=== PATIENT | female | born 1970 | race Caucasian/White ===

== ENCOUNTER 2020-03-05 14:39 | Emergency (ER) | payer OTHER, SELFPAY ==
--- NOTE | ~2020-03-05 | CT_ITS ---
EXAMINATION: CT abd pelvis lumbar w con DATE: 03/05/2020 16:13 INDICATION: Abdominal pain. History of colitis. TECHNIQUE: Computed tomography (CT) of the abdomen and pelvis and lumbar spine was performed with 100 cc Omnipaque 350 intravenous contrast. Automated exposure control and iterative reconstruction techn ique were employed. Exam dose: 216.84 mGy-cm total exam DLP. COMPARISON: 11/16/2018 CT abdomen pelvis noncontrast examination FINDINGS: There are bilateral foramen of Bochdalek hernias containing fat and portions of the kidneys . No pulmonary consolidation at the lung bases. Normal heart size. No pericardial or pleural effusion. Status post cholecystectomy. No hepatic, splenic, pancreatic, and adrenal or renal space-occupying ma ss lesion is detected. Multiple bilateral nonobstructing small renal calculi, measuring 4 mm or small er. No ureteral calculus or hydroureteronephrosis. No renal mass lesion is detected. The urinary bladder, uterus and adnexal areas are unremarkable. Normal caliber of the abdominal aorta. No intraperitoneal or retroperitoneal or pelvic mass lesion o r lymphadenopathy or ascites. There are numerous diverticula of the colon; no CT evidence of diverticulitis. No bowel obstruction, bowel wall thickening, pneumatosis or intraperitoneal free air is detected. Small fat-containing umbilical hernia. Included skeletal structures are unremarkable. IMPRESSION: Bilateral foramen of Bochdalek hernias, partially including kidneys Status post cholecystectomy Bilateral nonobstructive nephrolithiasis Reviewed, dictated and finalized at [facility]. Reviewed, dictated and finalized at location [facility]. 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
--- NOTE | ~2020-03-05 | CT_ITS ---
EXAMINATION: CTA chest PE protocol EXAM DATE: 03/05/2020 16:47 INDICATION: Left-sided chest pain. Elevated d-dimer. TECHNIQUE: Spiral CTA of the chest (pulmonary arteries) was performed with 100 cc Omnipaque 350 intr avenous contrast injection. Images were acquired during the pulmonary arterial phase. Coronal maxi mum intensity projection 3D-reconstructions were created by the technologist on dedicated workstation . Axial, coronal and sagittal reformatted images were reviewed. The dose-length product (DLP) for t his examination was 167.20 mGy-cm. The exposure was tailored according to patient size (auto mA exp osure control), and iterative reconstruction (ASIR) was used as additional dose reduction technique. Correlation is made to chest x-ray same date. FINDINGS: Pulmonary arteries are well opacified and without intraluminal filling defects. No thora cic aortic dissection. The lungs are clear. There are no pleural or pericardial effusions. Trach eobronchial tree is patent. There is no mediastinal, hilar or axillary lymphadenopathy. There is no pneumothorax. Heart normal in size. No evidence of coronary arterial calcification. Cholecyst ectomy clips. The bones are unremarkable. Breast implants. IMPRESSION: 1. Unremarkable CT pulmonary exam. Reviewed, dictated and finalized at location [facility]. 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
[2020-03-05 14:43] VITALS: BP 130/81; PULSE 91; RESP 20; TEMP 36.8; O2SAT 99
--- NOTE | 2020-03-05 14:53 | ED.ABDPAIN ---
HPI - Abdominal Pain General Chief Complaint: Abdominal Pain Stated Complaint: blood in stool, side pain, buttock pain Time Seen by Provider: 03/05/20 14:53 Source: patient Mode of arrival: ambulatory Limitations: no limitations History of Present Illness HPI narrative: Patient is a 49-year-old female with a history of colitis who presents for evaluation of abdominal pain, flank pain, pleuritic chest pain. Patient states that she has had red stools intermittently over the past 2 days, with cramping left-sided abdominal pain. She does notice that the pain worsens with movement. She denies any recent heavy bending or lifting. She also reports pain in her left buttock that radiates on the back of her left leg. No associated fever, chills, nausea or vomiting. Eating does not aggravate her symptoms. 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 Patient denies any shortness of breath, does report some chest pain when she takes a deep breath. This has been also present over the past 2 to 4 days. She denies any palpitations or central chest pain. No jaw pain or diaphoresis. Patient denies any history of cardiac problems. Related Data Allergies Allergy/AdvReac Type Severity Reaction Status Date / Time No Known Allergies Allergy Unknown Verified 12/25/18 16:35 Review of Systems Review of Systems: Narrative: CONSTITUTIONAL: Denies fever, chills, or sweats. EYES: Denies visual changes, redness, or discharge. ENT: Denies rhinorrhea, congestion, sore throat, or otalgia. CARDIOVASCULAR: Reports left-sided chest pain with deep inspiration, denies palpitations or edema RESPIRATORY: Denies cough or dyspnea. GASTROINTESTINAL: Reports left-sided abdominal pain without nausea, vomiting, patient does report numerous loose stools GENITOURINARY: Denies dysuria or hematuria. SKIN: Denies rash or itching. MUSCULOSKELETAL: Reports lower back pain with radiation down to her buttocks NEUROLOGIC: Denies headache, numbness, or weakness. [facility] Past Medical History Medical History (Updated 03/05/20 @ 17:41 by Janay Fernandes MD) ADD (attention deficit disorder) Anxiety and depression Irritable bowel syndrome Migraine syndrome Tremor of unknown origin Family History Family History (Updated 06/23/16 @ 23:56 by DOCTOR UNKNOWN) Mother Family history of malignant neoplasm of breast in first degree relative, Onset Age: 65 Patient's mother is Family history of pancreatic cancer Other Cerebrovascular accident Diabetes mellitus Social History Social History Alcohol intake: current Exam Narrative: Exam Narrative: GENERAL: Awake, alert, conversant HEAD: Normocephalic, atraumatic. EYES: PERRLA and EOMI. ENT: Nares clear, no rhinorrhea or epistaxis. Mucous membranes moist. NECK: Supple. CHEST: No respiratory distress, breathing even and non labored HEART: Regular rate, sinus rhythm ABDOMEN:Non distended, mildly tender in the left lower quadrant left middle abdomen without rebound or guarding. Mild left flank tenderness which reproduces the pain. No lesions or vesicles present. : Positive left SI joint tenderness, no midline lumbar tenderness EXTREMITIES: Normal range of motion. No edema. SKIN: Warm, dry, no rash. NEURO:No focal deficits. Alert and oriented x3 Course Vital Signs Vital signs: Vital Signs Temperature 36.8 C 03/05/20 14:43 Pulse Rate 91 03/05/20 14:43 Respiratory Rate 20 03/05/20 14:43 Blood Pressure 130/81 03/05/20 14:43 Pulse Oximetry 99 03/05/20 14:43 Temperature 36.8 C 03/05/20 14:43 Pulse Rate 91 03/05/20 14:43 Respiratory Rate 20 03/05/20 14:43 Blood Pressure 130/81 03/05/20 14:43 Pulse Oximetry 99 03/05/20 14:43 MDM - Abdominal Pain MDM Narrative Medical decision making narrative: Patient presented for evaluation of mild lef
[2020-03-05 15:37] LABS: Basophils Absolute Auto 0.1 K/mm3 (0.0-0.1); Basophils Percent Auto 0.8 % (0.2-1.2); Eosinophils Absolute Auto 0.4 K/mm3 (0-0.3); Eosinophils Percent Auto 4.9 % (0-4.4); Hematocrit 40.3 % (37.0-47.0); Hemoglobin 13.3 g/dL (12.0-15.0); Immature Granulocyte Absolute 0.02 K/mm3 (0.00-0.031); Immature Granulocyte Percent A 0.3 % (0-0.5); Lymphocytes Absolute Auto 3.11 K/mm3 (0.9-3.2); Lymphocytes Percent Auto 40.9 % (18.3-44.2); Mean Corpuscular Hemoglobin 31.7 pg (26-34); Mean Corpuscular Volume 96.2 fl (80-100); Mean Platelet Volume 9.8 fl (7.4-10.4); Monocytes Absolute Auto 0.5 K/mm3 (0.1-0.6); Monocytes Percent Auto 7.1 % (2.6-8.5); Neutrophils Absolute Auto 3.5 K/mm3 (1.3-6.7); Platelet Count Result 283 k/mm3 (150-375); Red Blood Count 4.19 M/mm3 (4.2-5.4); Red Cell Distribution Width 12.2 % (11.5-14.5); White Blood Count 7.6 K/mm3 (4.5-10.0)
[2020-03-05 15:41] LABS: Add Urine Microscopic? YES; Appearance Urine Clear (Clear); Bilirubin Urine Negative (Negative); Blood Urine 1+ (Negative); Color Urine Yellow (Yellow); Glucose Urine UA Negative (Negative); Ketones Urine Negative (Negative); Leukocyte Esterase Ur Negative LEU/UL (Negative); Mucus Urine Rare /lpf; Nitrate Urine Negative (Negative); Protein Urine Negative (Negative); Specific Grav Ur 1.016 (1.001-1.035); Squamous Epithelial Cell Urine Rare /hpf (Few); Urobilinogen Urine Negative mg/dL (<2.0); WBC Urine 0-3 /hpf
[2020-03-05 15:46] LABS: INR 0.8; Prothrombin Time 12.1 Seconds (11.1-14.7)
[2020-03-05 15:47] LABS: Partial Thromboplastin Time 29.9 SECONDS (22.3-36.8)
[2020-03-05 15:48] LABS: Alanine Aminotransferase 14 U/L (4-35); Albumin Level 4.1 g/dL (3.5-5.1); Alkaline Phosphatase 59 U/L (38-126); Anion Gap 6 mmol/L (8-16); Aspartate Amino Transferase 23 U/L (14-36); Bilirubin,Total 0.4 mg/dL (0.2-1.3); Blood Urea Nitrogen 16 mg/dL (7-17); Calcium 9.6 mg/dL (8.4-10.2); Carbon Dioxide 32 mmol/L (22-30); Chloride 101 mmol/L (98-107); Estimated CRCL calculation 62 ml/min; Estimated Glomerular Filt Rate > 60; Glucose 95 mg/dL (65-105); Lipase 55 U/L (23-300); Potassium 3.5 mmol/L (3.4-5.0); Sodium 139 mmol/L (137-145)
[2020-03-05 16:00] LABS: Troponin I < 0.012 ng/mL (0.000-0.034)
[2020-03-05 16:06] LABS: D Dimer 0.53 ug/mL (<0.48)
[2020-03-05] MEDS: SODIUM CHLORIDE 0.9% IV 1,000 ML 999 ML IV CONT (16:12)
--- NOTE | 2020-03-05 16:29 | PC.NURSE ---
patient back from CT. IVF continue. waiting for CT results.
--- NOTE | 2020-03-05 17:20 | PC.NURSE ---
resting on stretcher. magnesium continues. IVF almost done. provider has reviewed current treatment plan and discharge plan with patient.
[2020-03-05 18:07] VITALS: BP 128/66; PULSE 78; RESP 18; TEMP 36.6; O2SAT 100
== END 2020-03-05 18:08 | disposition home or self-care (01) ==
PROVIDERS: Emergency Provider Emergency Medicine; PCP Internal Medicine
DX: K58.9 Irritable bowel syndrome, unspecified (principal); K62.5 Hemorrhage of anus and rectum; N20.0 Calculus of kidney; K44.9 Diaphragmatic hernia without obstruction or gangrene; F98.8 Other specified behavioral and emotional disorders with onset usually occurring in childhood and adolescence; F41.9 Anxiety disorder, unspecified; F32.9 Major depressive disorder, single episode, unspecified
CPT/HCPCS: 36415; 71275; 72132; 74177; 80053; 81001; 83690; 84484; 85025; 85380; 85610; 85730; 99284; J7030; Q9967

== ENCOUNTER 2021-08-02 06:30 | Emergency (ER) | payer OTHER, SELFPAY ==
[2021-08-02 06:31] VITALS: BP 122/78; PULSE 63; RESP 18; TEMP 36.1; O2SAT 99
--- NOTE | 2021-08-02 06:46 | ECG_ITS ---
Measurements Intervals [place] Rate: 69 P: 46 AR: 150 QRS: 63 QRSD: 87 T: 65 QT: 425 QTc: 455 Interpretive Statements SINUS RHYTHM BASELINE ARTIFACT- AVR, AVF NORMAL ECG Electronically Signed On 08-02-2021 7:55:28 CDT by Nguyễn Salter D.O.
[2021-08-02 07:16] VITALS: BP 116/69; PULSE 68; RESP 14; O2SAT 100
[2021-08-02] MEDS: ONDANSETRON INJ 4 MG/2 ML VIAL IV PUSH (07:44)
[2021-08-02] MEDS: SODIUM CHLORIDE 0.9% IV 1,000 ML 999 ML IV CONT (07:44)
[2021-08-02] MEDS: MECLIZINE HCL 25 MG TABLET PO (07:50)
--- NOTE | 2021-08-02 08:17 | ED.DIZZY ---
HPI - Dizziness General Chief Complaint: Dizziness Stated Complaint: dizziness, n/v Time Seen by Provider: 08/02/21 06:57 History of Present Illness HPI Narrative: Patient is a 50-year-old female who presents ER with dizziness. Began 2 days ago. Had a break yesterday but much more severe this morning. The room is spinning. She is nauseated and vomiting. No weakness of an arm or leg. No focal numbness or tingling. She has had some sinus congestion over the last couple weeks due to seasonal allergies. No fevers or chills or sweats. No history of motion sickness. Related Data Allergies Allergy/AdvReac Type Severity Reaction Status Date / Time No Known Allergies Allergy Unknown Verified 08/02/21 06:43 Review of Systems Review of Systems: All systems reviewed & are unremarkable except as noted in HPI and below Constitutional: Constitutional: Denies chills, Denies fever(s) and Denies weakness ENT: Reports nasal congestion and Denies sore throat Comments: Denies tinnitus or change in hearing Gastrointestinal: Gastrointestinal: Reports nausea and Reports vomiting Neurologic: Reports dizziness, Denies headache(s), Denies focal weakness and Denies numbness PMFSH Past Medical History Medical History (Updated 08/02/21 @ 08:59 by Blade Denton MD) ADD (attention deficit disorder) Anxiety and depression Irritable bowel syndrome Migraine syndrome Tremor of unknown origin Surgical History Surgical History (Updated 08/02/21 @ 08:19 by Blade Denton MD) History of cholecystectomy Family History Family History (Updated 06/23/16 @ 23:56 by DOCTOR UNKNOWN) Mother Family history of malignant neoplasm of breast in first degree relative, Onset Age: 65 Patient's mother is Family history of pancreatic cancer Other Cerebrovascular accident Diabetes mellitus Social History Social History (Updated 01/12/21 @ 07:58 by Emma Burton MA) Smoking packs per day: 0.15 Smoking cigarettes per day: 3.0 Years smoked: 3 Smoking pack-years: 0.45 Smoking status: Former smoker Tobacco type: cigarettes Smoking end date: 01/04/90 Alcohol intake: current Alcohol use details: social Substance use: never Exam Narrative: GENERAL: Well-appearing, well-nourished, and in no acute distress. HEAD: Normocephalic, atraumatic. EYES: PERRL and EOMI. left gaze nystagmus. ENT: Mucous membranes moist. Ear canals free of cerumen. TMs normal bilaterally. NECK: Supple. CHEST: Clear to auscultation. No respiratory distress. HEART: Regular rate and rhythm. Normal peripheral pulses. EXTREMITIES: Normal range of motion. No edema. NEURO: Alert and oriented x3. PSYCH: Normal mood and affect. Course Course Emergency Course: Symptoms improved with meclizine/Zofran/fluids. Discharge home with supportive care. Vital Signs Vital signs: Vital Signs Temperature 97 F L 08/02/21 06:31 Pulse Rate 63 08/02/21 06:31 Respiratory Rate 18 08/02/21 06:31 Blood Pressure 122/78 08/02/21 06:31 Pulse Oximetry 99 08/02/21 06:31 Temperature 97 F L 08/02/21 06:31 Pulse Rate 68 08/02/21 07:16 Respiratory Rate 14 08/02/21 07:16 Blood Pressure 116/69 08/02/21 07:16 Pulse Oximetry 100 08/02/21 07:16 Discharge Plan Discharge Clinical Impression: Vertigo Patient Disposition: Home, Self-Care Condition: Stable Instructions: Vertigo (ED) Additional Instructions: Return the ER if you cannot keep down food or water, you have chest pain or shortness of breath, you develop fever over 100.4 ?F, you have focal weakness in arm or leg. Prescriptions: New meclizine 12.5 mg tablet 12.5 mg PO TID PRN (Reason: dizziness) Qty: 14 RF: 0 ondansetron 4 mg tablet,disintegrating 4 mg PO Q6H PRN (Reason: nausea and vomiting) Qty: 10 RF: 0 No Action fluticasone propionate [Flonase Allergy Relief] 50 mcg/actuation spray,suspension 2 spray intranasal BID Qt
[2021-08-02 09:10] VITALS: BP 112/61; PULSE 88; RESP 16; O2SAT 99
== END 2021-08-02 09:10 | disposition home or self-care (01) ==
PROVIDERS: Emergency Provider Emergency Medicine; PCP Internal Medicine
DX: R42 Dizziness and giddiness (principal); Z87.891 Personal history of nicotine dependence
CPT/HCPCS: 93005; 96361; 96374; 99284; A9270; J2405; J7030

== ENCOUNTER 2021-08-15 14:51 | Emergency (ER) | payer OTHER, SELFPAY ==
--- NOTE | 2021-08-15 15:04 | ED.WOUNDLAC ---
HPI - Wound/Laceration General Chief Complaint: Wound/Laceration Stated Complaint: FINGER LACERATION Time Seen by Provider: 08/15/21 15:04 Source: patient and RN notes reviewed History of Present Illness HPI narrative: Patient is a 50-year-old female who presents the urgent care with complaints of a laceration to the left middle finger. Patient states that she was using shearing scissors to cut a strap off her clothing and snap at the tip of her left middle finger. Patient states that she immediately applied pressure, clean the wound and put gorilla glue over the wound. Patient states she is have it covered with gauze since then. Denies of any increase in pain, fever, redness or swelling. No other acute complaints. No acute distress noted. Patient aware of the plan of care. Some parts of this dictation were generated by voice recognition software and may contain typographical and/or grammatical inaccuracies. Related Data Allergies Allergy/AdvReac Type Severity Reaction Status Date / Time No Known Allergies Allergy Unknown Verified 08/15/21 15:13 Review of Systems Review of Systems: CONSTITUTIONAL: Denies fever, chills, or sweats. EYES: Denies visual changes, redness, or discharge. ENT: Denies rhinorrhea, congestion, sore throat, or otalgia. CARDIOVASCULAR: Denies chest pain, palpitations, or edema. RESPIRATORY: Denies cough or dyspnea. GASTROINTESTINAL: Denies abdominal pain, nausea, vomiting, or diarrhea. GENITOURINARY: Denies dysuria or hematuria. SKIN: Reports of a laceration to the left middle finger MUSCULOSKELETAL: Denies back pain, joint pain, or myalgia. NEUROLOGIC: Denies headache, numbness, or weakness. All other systems reviewed are negative, except as documented in HPI. [facility] Past Medical History Medical History (Updated 08/15/21 @ 15:39 by USMAN Bacon) ADD (attention deficit disorder) Anxiety and depression Irritable bowel syndrome Migraine syndrome Tremor of unknown origin Surgical History Surgical History (Updated 08/02/21 @ 08:19 by Blade Denton MD) History of cholecystectomy Family History Family History (Updated 06/23/16 @ 23:56 by DOCTOR UNKNOWN) Mother Family history of malignant neoplasm of breast in first degree relative, Onset Age: 65 Patient's mother is Family history of pancreatic cancer Other Cerebrovascular accident Diabetes mellitus Social History Social History (Updated 01/12/21 @ 07:58 by Emma Burton MA) Smoking packs per day: 0.15 Smoking cigarettes per day: 3.0 Years smoked: 3 Smoking pack-years: 0.45 Smoking status: Former smoker Tobacco type: cigarettes Smoking end date: 01/04/90 Alcohol intake: current Alcohol use details: social Substance use: never Comments At the time of my signature, I reviewed and agree with the nursing past medical, surgical, social, and family history. There is no relevant family history pertinent to the patient complaint. Exam Narrative: GENERAL: This is a well-nourished, well-developed patient, in no apparent distress. HEAD: normocephalic, atraumatic. EYES: PERRL. Sclera clear/white. Vision is grossly intact. EARS: External ears normal NOSE: External nose normal with no obvious nasal discharge, nares without redness, no rhinorrhea. THROAT: Mucous membranes moist NECK: Neck supple SKIN: Irregular skin avulsion to the distal tip of the left middle finger NEURO: awake, alert, and oriented to person, place and time. There were no obvious focal neurologic abnormalities. EXTREMITIES: No clubbing, cyanosis, or edema. Capillary refill less than 2 seconds to left upper extremity with positive strong left radial pulse. Range of motion to left upper extremity within normal limits. Course Course Level of Care: Express Care Visit Vital Signs Vital signs: Vital Signs Temperature 97.1 F L 08/15/21 15:15 Pulse Rate 77 08/15/21 15:15 Respiratory Rate 16 08/15/21 15:15
[2021-08-15 15:15] VITALS: BP 119/65; PULSE 77; RESP 16; TEMP 36.2; O2SAT 100
== END 2021-08-15 15:53 | disposition home or self-care (01) ==
PROVIDERS: Emergency Provider Nurse Practitioner Family; PCP Internal Medicine
DX: S61.203A Unspecified open wound of left middle finger without damage to nail, initial encounter (principal); W27.2XXA Contact with scissors, initial encounter; Z87.891 Personal history of nicotine dependence
CPT/HCPCS: 99213; G0463

== ENCOUNTER → 2023-01-09 15:42 | Outpatient (CLI) | payer OTHER, SELFPAY ==
--- NOTE | ~2023-01-09 | US_ITS ---
EXAMINATION: US pelvic complete DATE: 01/09/2023 16:01 INDICATION: Abnormal uterine bleeding Comparison:No prior studies for comparison. TECHNIQUE: Multiple transabdominal and endovaginal sonographic images of the pelvis performed. FINDINGS: The uterus measures 7.1 x 4.2 x 4.4 cm. There is a mass at the fundus of uterus measuring 1 .6 cm, compatible with a fibroid. The endometrial complex measures 3 mm. The right ovary measures 2 x 2 x 1.4 cm and the left ovary measures 2.1 x 2.6 x 1.8 cm. There are sm all follicles in each ovary. Normal doppler signal in both ovaries. There is no free fluid in the pelvis. There are no abnormal masses seen on either side. IMPRESSION: 1. Uterine fundus measuring 1.6 cm. Reviewed, dictated and finalized at location [facility].
== END ==
PROVIDERS: PCP Advanced Practice Midwife; Visit Provider Advanced Practice Midwife
DX: N93.8 Other specified abnormal uterine and vaginal bleeding (principal)
CPT/HCPCS: 76856

== ENCOUNTER 2023-02-26 02:16 | Day surgery (SDC) | payer OTHER, SELFPAY ==
--- NOTE | 2023-02-23 14:33 | PC.NURSE ---
Report to the Outpatient Waiting Room, entrance under the green pavilion located off [facility], at time 12:45pm on date 02-26-23. Planned Procedure Time: 2:45pm. Time changes happen often and if your time is changed the preop area will call you the afternoon before. - You and your visitor will be asked to self-screen and do not enter if you have any COVID symptoms. - A mask is optional within the hospital at this time. Patients may have clear liquids (water, carbonated beverages, clear teas, apple juice) until 3 hours prior to surgery (11:45am) with a maximum of 20 ounces. - No food from midnight until time of surgery Take the following medications with a SIP of water the morning of surgery: inhaler as needed, vyvanse DO NOT STOP ANY OF YOUR OTHER PRESCRIPTION MEDICATIONS PRIOR TO SURGERY ?EXCEPT THE FOLLOWING Medications to discontinue per physician: n/a Please no make-up, nail namibian, hairspray, perfume, deodorant, or body powder the day of surgery. No jewelry (including any body piercings) or valuables the day of surgery, leave them at home. Please take a shower or bath the night before, or the morning of, surgery with an antibacterial soap. Wear comfortable, loose fitting clothing. - Jewelry must be removed prior to entering the operating room. Rings and piercings that are not removed may be cut off. - The hospital will not accept responsibility for valuables. - Please leave all valuables, including medications, at home the day of surgery. If you are going home after surgery, a licensed straight truck driver must drive you home. - NO public transportation without another adult if you receive anesthesia. - We recommend that an adult stay with you for 24 hours following discharge. - We also recommend that you do not drive, make important decision, drink alcoholic beverages, or take any drugs that were not prescribed by your health care provider for at least 24 hours after your discharge time. Follow any additional instructions given to you from your surgeon. If you or anyone in your household have experienced Covid symptoms in the past week, please notify your surgeon or the nurse liaison at the phone number below for possible testing. Telephone instructions given to PATIENT and asked if any additional questions and then verbalized understanding. Patient advised to call surgeon office or pre surgery nurse liaison [phone] if any additional questions.
[2023-02-23 14:41] VITALS: BMI 20.1
--- NOTE | 2023-02-26 08:30 | WPDHPUPDATE1 ---
History and Physical Update Update Date/Time: 02/26/23 08:30 History and Physical has been reviewed, including an updated exam of the patient. There are NO changes in the patient's condition. Risks, benefits, and alternatives have been discussed and questions answered. Patient agrees to proceed with procedure.
--- NOTE | 2023-02-26 08:30 | PM.HPGS ---
History of Present Illness History of Present Illness Consent: Risks, benefits, and alternatives have been discussed and questions answered. Patient agrees to proceed with procedure. Chief complaint: Abnormal Uterine Bleed,Fibroids No Endo Cerv Cells Narrative: Katina Aguirre is a 52 year old female with heavy and irregular bleeding. Pelvic ultrasound shows a fibroid. Patient has been skipping cycles for up to 6 months at a time. Cycles have returned and have been regular but much heavier. Cycles are also closed with an 21 days at times. It was recommended to undergo D&C hysteroscopy for further evaluation. Risks of infection, bleeding, perforation, and possible pathology are discussed. Patient voiced understanding and agrees to proceed. Review of Systems Review of Systems: not repeated day of surgery; patient states no changes in status [facility] Past Medical History Medical History (Updated 02/26/23 @ 08:34 by Chanell Werner MD) ADD (attention deficit disorder) Anxiety and depression Irritable bowel syndrome Migraine syndrome Tremor of unknown origin Surgical History Surgical History (Updated 02/26/23 @ 08:33 by Chanell Werner MD) History of bilateral breast implants History of breast biopsy History of cholecystectomy History of cone biopsy of cervix 2017 Family History Family History Mother Family history of malignant neoplasm of breast in first degree relative, Onset Age: 65 Patient's mother is Family history of pancreatic cancer Other Cerebrovascular accident Diabetes mellitus Social History Social History Smoking packs per day: 0.15 Smoking cigarettes per day: 3.0 Years smoked: 3 Smoking pack-years: 0.45 Smoking status: Former smoker Tobacco type: cigarettes Second hand tobacco smoke exposure: No Smoking end date: 01/04/90 Additional smoking assessment comments: socially, college Alcohol intake: former Alcohol use details: occasionally Substance use: current Substance use type: marijuana Lack of Transportation: No Lack of Food: Never True Current Housing: I Have Housing Concerned About Future Housing: No Difficulty Paying Gas/Electric Bills: No Difficulty Paying for Meds: No Currently Unemployed: No Education: Master's Degree or Higher Difficulty w/ Childcare or Family Care: No Living arrangements: with family Occupation/Education: occupation Gender identity (if verbalized by the patient): Female Spiritual care concerns: No Meds Home Medications and Allergies Home Medications Medication Instructions Recorded Confirmed Type montelukast 10 mg tablet 10 mg PO DAILY #30 tabs 07/24/22 02/23/23 Rx (Singulair) rizatriptan 10 mg disintegrating See Rx Instructions PO .COMPLEX 10/17/22 02/23/23 History tablet PRN HEADACHES lisdexamfetamine 50 mg capsule 50 mg PO DAILY #30 caps 01/24/23 02/23/23 Rx (Vyvanse) albuterol sulfate 90 mcg/actuation 2 inh inhalation Q4H PRN shortness 01/29/23 02/23/23 Rx aerosol inhaler of breath or wheezing #8.5 grams Allergies Allergy/AdvReac Type Severity Reaction Status Date / Time No Known Allergies Allergy Unknown Verified 02/23/23 14:41 Exam Const: General: healthy appearing and alert Orientation/consciousness: patient oriented x3 Resp: Effort & Inspection: normal respiratory effort GI: GI Palp: Yes Soft to palpation, No Tenderness to palpation present (GI) and No Palpable mass present : External Female Exam: normal external appearance Speculum Exam - Vagina: normal appearance of the vagina and normal vaginal discharge Speculum Exam - Cervix: normal appearance of the cervix Bimanual exam- vagina & uterus: uterine size normal and consistency normal Bimanual Exam- Adnexa, other: normal adnexae and No adnexal tenderness Neuro: General: franci
[2023-02-26 12:48] VITALS: BP 102/64; PULSE 76; RESP 16; TEMP 36.6; O2SAT 100
[2023-02-26] MEDS: ACETAMINOPHEN 500 MG TABLET 1000 MG PO (12:57)
[2023-02-26] MEDS: LACTATED RINGERS 1,000 ML 30 ML IV CONT (13:20)
--- NOTE | 2023-02-26 13:50 | WPDANESEPPF ---
Anes - Initial Pre Proc Eval Procedure: Operation Date: 02/26/23 14:45 Proposed Procedures p Hysteroscopy Dilation and Curettage with Endocervical Curettage - Chanell Werner MD Date/Time: 02/26/23 13:50 Surgeon: Chanell Werner MD Pre Op Diagnosis: Abnormal Uterine Bleed,Fibroids No Endo Cerv Cells Patient Data Age: 52 Gender: F Height: 1.57 m Weight: 50.2 kg Last Vital Signs Temp 36.6 C 02/26/23 12:48 Pulse 76 02/26/23 12:48 Resp 16 02/26/23 12:48 BP 102/64 02/26/23 12:48 Pulse Ox 100 02/26/23 12:48 O2 Del Method Room Air 02/26/23 12:48 Allergies Allergy/AdvReac Type Severity Reaction Status Date / Time No Known Allergies Allergy Unknown Verified 02/26/23 12:47 Home Medications Medication Instructions Recorded Confirmed Type montelukast 10 mg tablet 10 mg PO DAILY #30 tabs 07/24/22 02/23/23 Rx (Singulair) rizatriptan 10 mg disintegrating See Rx Instructions PO .COMPLEX 10/17/22 02/23/23 History tablet PRN HEADACHES lisdexamfetamine 50 mg capsule 50 mg PO DAILY #30 caps 01/24/23 02/23/23 Rx (Vyvanse) albuterol sulfate 90 mcg/actuation 2 inh inhalation Q4H PRN shortness 01/29/23 02/23/23 Rx aerosol inhaler of breath or wheezing #8.5 grams Patient hx anesthesia problems: none Family hx anesthesia problems: none Results Review: All pre-operative results and documents have been reviewed as part of the pre-operative evaluation. [facility] Past Medical History Medical History ADD (attention deficit disorder) Anxiety and depression Irritable bowel syndrome Migraine syndrome Tremor of unknown origin Surgical History Surgical History History of bilateral breast implants History of breast biopsy History of cholecystectomy History of cone biopsy of cervix 2016 Family History Family History Mother Family history of malignant neoplasm of breast in first degree relative, Onset Age: 65 Patient's mother is Family history of pancreatic cancer Other Cerebrovascular accident Diabetes mellitus Social History Social History Smoking packs per day: 0.15 Smoking cigarettes per day: 3.0 Years smoked: 3 Smoking pack-years: 0.45 Smoking status: Former smoker Tobacco type: cigarettes Second hand tobacco smoke exposure: No Smoking end date: 01/04/90 Additional smoking assessment comments: socially, college Alcohol intake: former Alcohol use details: occasionally Substance use: current Substance use type: marijuana Lack of Transportation: No Lack of Food: Never True Current Housing: I Have Housing Concerned About Future Housing: No Difficulty Paying Gas/Electric Bills: No Difficulty Paying for Meds: No Currently Unemployed: No Education: Master's Degree or Higher Difficulty w/ Childcare or Family Care: No Living arrangements: with family Occupation/Education: occupation Gender identity (if verbalized by the patient): Female Spiritual care concerns: No Anes - Eval Final PreProcedure Day of Procedure 02/26/23 13:50 Patient weight: normal Heart: regular rate and rhythm Lungs: clear to auscultation Airway: Mallampati scale class II Neurological: alert and oriented Last oral intake: >/= 8 hours ASA classification: II Emergent: no Anesthetic plan: proceed Anesthesia type and monitoring: general GIVS and standard monitoring Results Review: All pre-operative results and documents have been reviewed as part of the pre-operative evaluation. Informed Consent: The patient's anesthetic plan and its attendant risks and benefits were discussed with the patient/family/POA. Questions were solicited and answers provided to the satisfaction of the patient/family/POA.
[2023-02-26 14:40] VITALS: BP 112/67; PULSE 65; RESP 16; O2SAT 100
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
[2023-02-26 15:10] VITALS: BP 94/69; PULSE 77; RESP 16
== END 2023-02-26 15:25 | disposition home or self-care (01) ==
PROVIDERS: PCP Nurse Practitioner; Visit Provider Obstetrics & Gynecology Gynecology
PROC: 0U5B8ZZ Destruction of Endometrium, Via Natural or Artificial Opening Endoscopic (ICD-10-PCS; CPT 58563; principal; 2023-02-26 14:45)
DX: N92.1 Excessive and frequent menstruation with irregular cycle (principal); F41.8 Other specified anxiety disorders; F98.8 Other specified behavioral and emotional disorders with onset usually occurring in childhood and adolescence; K58.9 Irritable bowel syndrome, unspecified; R25.1 Tremor, unspecified; G43.909 Migraine, unspecified, not intractable, without status migrainosus; F12.90 Cannabis use, unspecified, uncomplicated; Z79.51 Long term (current) use of inhaled steroids; Z90.49 Acquired absence of other specified parts of digestive tract; Z87.891 Personal history of nicotine dependence; Z80.3 Family history of malignant neoplasm of breast; Z80.0 Family history of malignant neoplasm of digestive organs; Z82.49 Family history of ischemic heart disease and other diseases of the circulatory system
CPT/HCPCS: 58558; 88305; A9270; J2250; J2704; J3010; J7120